=== PATIENT | male | born 1985 ===

== ENCOUNTER 2020-01-30 17:37 | Emergency (ER) | payer SELFPAY ==
[2020-01-30 17:54] VITALS: BP 133/80; PULSE 88; RESP 20; TEMP 36.3; O2SAT 97; BMI 27.8
== END 2020-01-31 00:38 ==
LOC: ER 18:56
PROVIDERS: Emergency Provider Emergency Medicine
DX: Z53.21 Procedure and treatment not carried out due to patient leaving prior to being seen by health care provider (principal)
CPT/HCPCS: 99281